=== PATIENT | male | born 1940 | race Caucasian/White ===

== ENCOUNTER 2016-10-15 10:34 | Outpatient (CLI) | payer MEDICARE, OTHER | END 2016-10-15 10:35 | disposition home or self-care (01) | DX: I48.91 Unspecified atrial fibrillation (principal); Z79.01 Long term (current) use of anticoagulants ==

== ENCOUNTER 2016-10-28 | Outpatient (CLI) | payer MEDICARE, OTHER | END 2016-10-28 11:58 | disposition short-term general hospital (02) | CPT/HCPCS: A0425; A0427 ==

== ENCOUNTER 2016-11-03 10:17 | Outpatient (CLI) | payer MEDICARE, OTHER | END 2016-11-03 10:18 | disposition home or self-care (01) | DX: I48.91 Unspecified atrial fibrillation (principal); Z79.01 Long term (current) use of anticoagulants ==

== ENCOUNTER 2016-11-17 08:00 | Outpatient (CLI) | payer MEDICARE, OTHER | END 2016-11-17 08:01 | disposition home or self-care (01) | DX: Z79.01 Long term (current) use of anticoagulants (principal); I48.91 Unspecified atrial fibrillation ==

== ENCOUNTER 2016-12-03 12:55 | Outpatient (CLI) | payer MEDICARE, OTHER | END 2016-12-03 12:56 | disposition home or self-care (01) | DX: I48.91 Unspecified atrial fibrillation (principal); Z79.01 Long term (current) use of anticoagulants ==

== ENCOUNTER 2016-12-08 20:50 | Observation (INO) | payer MEDICARE, OTHER ==
[2016-12-09] MEDS ORDERED: SODIUM CHLORIDE FLUSH 0.9% 10 ML SYRINGE IVP PRN (01:47)
[2016-12-09] MEDS ORDERED: ONDANSETRON 4 MG/2 ML VIAL IVP PRN (01:47)
[2016-12-09] MEDS ORDERED: ACETAMINOPHEN 325 MG TABLET PO PRN (01:47)
[2016-12-09] MEDS ORDERED: SODIUM CHLORIDE 0.9% 1,000 ML IV SCH (02:00)
[2016-12-09] MEDS: SODIUM CHLORIDE FLUSH 0.9% 10 ML SYRINGE IVP SCH ×3 (06:42→22:46)
[2016-12-09] MEDS: PANTOPRAZOLE 40 MG TABLET PO SCH (07:07)
[2016-12-09] MEDS: TAMSULOSIN 0.4 MG CAPSULE PO SCH (08:21)
[2016-12-09] MEDS: FINASTERIDE 5 MG TABLET PO SCH (08:21)
[2016-12-09] MEDS: ATORVASTATIN 10 MG TABLET PO SCH (08:21)
[2016-12-09] MEDS: POLYETHYLENE GLYCOL 3350 17 GM PACKET PO SCH (08:21)
[2016-12-09] MEDS ORDERED: NON FORMULARY MED (Omeprazole [Omeprazole] 20 MG) PO SCH (09:00)
[2016-12-09] MEDS: VITAMIN B COMPLEX 100 MG PO SCH (11:52)
[2016-12-09] MEDS ORDERED: WARFARIN 2.5 MG TABLET PO SCH (14:00)
[2016-12-10] MEDS: SODIUM CHLORIDE FLUSH 0.9% 10 ML SYRINGE IVP SCH (06:25)
[2016-12-10] MEDS: PANTOPRAZOLE 40 MG TABLET PO SCH (06:25)
[2016-12-10] MEDS ORDERED: MAGNESIUM HYDROXIDE 2,400 MG/30 ML UDC PO ONE (08:30)
[2016-12-10] MEDS ORDERED: SENNA 8.6 MG TABLET PO ONE (08:30)
[2016-12-10] MEDS ORDERED: DOCUSATE SODIUM 250 MG CAPSULE PO ONE (08:30)
[2016-12-10] MEDS ORDERED: NAPROXEN 250 MG TABLET PO SCH (09:00)
[2016-12-10] MEDS: FINASTERIDE 5 MG TABLET PO SCH (09:05)
[2016-12-10] MEDS: TAMSULOSIN 0.4 MG CAPSULE PO SCH (09:05)
[2016-12-10] MEDS: ATORVASTATIN 10 MG TABLET PO SCH (09:05)
[2016-12-10] MEDS: POLYETHYLENE GLYCOL 3350 17 GM PACKET PO SCH (09:07)
[2016-12-10] MEDS: VITAMIN B COMPLEX 100 MG PO SCH (09:07)
[2016-12-10] MEDS ORDERED: LATANOPROST 0.005% EACHEYE SCH (21:00)
[2016-12-10] MEDS ORDERED: OPTH EACHEYE SCH (21:00)
== END 2016-12-10 14:02 | disposition home or self-care (01) ==
DX: R53.1 Weakness (principal); N40.1 Benign prostatic hyperplasia with lower urinary tract symptoms; R35.0 Frequency of micturition; R39.15 Urgency of urination; G30.9 Alzheimer's disease, unspecified; F02.80 Dementia in other diseases classified elsewhere, unspecified severity, without behavioral disturbance, psychotic disturbance, mood disturbance, and anxiety; M17.11 Unilateral primary osteoarthritis, right knee; R26.2 Difficulty in walking, not elsewhere classified; I48.2 Chronic atrial fibrillation; Z79.01 Long term (current) use of anticoagulants; K21.9 Gastro-esophageal reflux disease without esophagitis; H40.9 Unspecified glaucoma; E78.5 Hyperlipidemia, unspecified; Z12.5 Encounter for screening for malignant neoplasm of prostate; Z79.899 Other long term (current) drug therapy
CPT/HCPCS: 36415; 51701; 70450; 73562; 80048; 81001; 83735; 84100; 84550; 85025; 85610; 85730; 87275; 87276; 97116; 97161; 99284; 99285; A9270; G0103; G0378; G8978; G8979; G8980

== ENCOUNTER 2016-12-23 13:22 | Outpatient (CLI) | payer MEDICARE, OTHER | END 2016-12-23 13:23 | disposition home or self-care (01) | DX: I48.91 Unspecified atrial fibrillation (principal); Z79.01 Long term (current) use of anticoagulants ==

== ENCOUNTER 2017-01-25 12:37 | Outpatient (CLI) | payer MEDICARE, OTHER | END 2017-01-25 12:38 | disposition home or self-care (01) | DX: Z79.01 Long term (current) use of anticoagulants (principal); I48.91 Unspecified atrial fibrillation ==

== ENCOUNTER 2017-02-08 11:18 | Outpatient (CLI) | payer MEDICARE, OTHER | END 2017-02-08 11:19 | disposition home or self-care (01) | DX: I48.91 Unspecified atrial fibrillation (principal); Z79.01 Long term (current) use of anticoagulants ==

== ENCOUNTER 2017-03-03 10:20 | Outpatient (CLI) | payer MEDICARE, OTHER | END 2017-03-03 10:21 | disposition home or self-care (01) | LOC: LAB.F 10:20 | PROVIDERS: ATTEND Internal Medicine | DX: I48.91 Unspecified atrial fibrillation (principal) | CPT/HCPCS: 85610 ==

== ENCOUNTER 2017-03-10 10:36 | Outpatient (CLI) | payer MEDICARE, OTHER | END 2017-03-10 10:37 | disposition home or self-care (01) | LOC: LAB.F 10:36 | PROVIDERS: ATTEND Internal Medicine | DX: Z79.01 Long term (current) use of anticoagulants (principal) | CPT/HCPCS: 85610 ==

== ENCOUNTER 2017-03-24 10:34 | Outpatient (CLI) | payer MEDICARE, OTHER | END 2017-03-24 10:35 | disposition home or self-care (01) | LOC: LAB.F 10:34 | PROVIDERS: ATTEND Internal Medicine | DX: Z79.01 Long term (current) use of anticoagulants (principal) | CPT/HCPCS: 85610 ==

== ENCOUNTER 2017-04-07 09:10 | Outpatient (CLI) | payer MEDICARE, OTHER | END 2017-04-07 09:11 | disposition home or self-care (01) | LOC: LAB.F 09:10 | PROVIDERS: ATTEND Internal Medicine | DX: Z79.01 Long term (current) use of anticoagulants (principal); I48.91 Unspecified atrial fibrillation | CPT/HCPCS: 85610 ==

== ENCOUNTER 2017-05-05 11:20 | Outpatient (CLI) | payer MEDICARE, OTHER | END 2017-05-05 11:21 | disposition home or self-care (01) | LOC: LAB.F 11:20 | PROVIDERS: ATTEND Internal Medicine | DX: Z79.01 Long term (current) use of anticoagulants (principal); I48.91 Unspecified atrial fibrillation | CPT/HCPCS: 85610 ==

== ENCOUNTER 2017-06-16 10:13 | Outpatient (CLI) | payer MEDICARE, OTHER | END 2017-06-16 10:14 | disposition home or self-care (01) | LOC: LAB.F 10:13 | PROVIDERS: ATTEND Internal Medicine | DX: Z79.01 Long term (current) use of anticoagulants (principal); I48.91 Unspecified atrial fibrillation | CPT/HCPCS: 85610 ==

== ENCOUNTER 2017-06-30 12:22 | Outpatient (CLI) | payer MEDICARE, OTHER | END 2017-06-30 12:23 | disposition critical access hospital (66) | LOC: EMS 12:22 | PROVIDERS: ATTEND Surgery | DX: R53.1 Weakness (principal); R41.82 Altered mental status, unspecified | CPT/HCPCS: A0425; A0427 ==

== ENCOUNTER 2017-06-30 12:23 | Emergency (ER) | payer MEDICARE, OTHER ==
[2017-06-30] MEDS ORDERED: SODIUM CHLORIDE 0.9% 1,000 ML IV ONE ×2 (12:30)
--- NOTE | 2017-06-30 12:33 | ED Physician Documentation ---
History of Present Illness - Stated complaint Stated Complaint: weakness - History obtained from History obtained from: Patient, EMS - History of Present Illness Timing: Today Pain level max: 0 Pain level now: 0 - Additonal information Additional information: Patient is a 77-year-old gentleman who presents to the emergency department after being found down in his lawn by a neighbor. Patient states he did not lose consciousness and was just feeling weak and sat down. The neighbor is unavailable for history and EMS could not get history whether he actually passed out or not. He initially was confused, but now appears awake and alert. Per EMS the patient's states the confusion is new today. Did not have any focal neurological deficits with EMS. EKG was atrial fibrillation and this is chronic for him. Concerned that he may have hit his head and he does take warfarin. Review of Systems Ten Systems: 10 systems reviewed and negative Constitutional: denies: Fever, Chills Eyes: denies: Decreased vision Ears: denies: Ear pain Nose: denies: Rhinorrhea / runny nose, Congestion Throat: denies: Sore throat Cardiac: denies: Chest pain / pressure Respiratory: denies: Cough GI: denies: Abdominal Pain, Nausea, Vomiting, Diarrhea : denies: Dysuria Skin: denies: Rash Musculoskeletal: denies: Neck pain, Back pain Neurologic: denies: Headache PD PAST MEDICAL HISTORY - Past Medical History Cardiovascular: High cholesterol, Atrial fibrillation Respiratory: None Neuro: Alzhiemer's Endocrine/Autoimmune: None GI: GERD : None HEENT: Glaucoma Psych: None Musculoskeletal: None Derm: None - Past Surgical History Past Surgical History: Yes Ortho: Other HEENT: Cataracts - Present Medications Home Medications: Ambulatory Orders Medication Instructions Recorded Confirmed Finasteride [Proscar] 5 mg PO DAILY 10/25/15 06/30/17 Warfarin Sodium [Jantoven] 2.5 mg PO DAILY 10/25/15 06/30/17 Sulfamethox/Trimeth 800/160 1 each PO BID #14 tablet 06/30/17 [Bactrim Ds 800/160] - Allergies Allergies/Adverse Reactions: Allergies Allergy/AdvReac Type Severity Reaction Status Date / Time ?betablockers Allergy Unknown Uncoded 12/08/16 21:05 - Social History Does the pt smoke?: No Smoking Status: Never smoker Does the pt drink ETOH?: Yes Does the pt have substance abuse?: No - Immunizations Immunizations are current?: Yes - POLST Patient has POLST: No PD ED PE NORMAL - Vitals Vital signs reviewed: Yes - General General: No acute distress, Well developed/nourished, Other (still confused to time, but oriented to person and place. 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, No motor deficit, No sensory deficit, Normal speech GCS Score: 14 - Psych Psych: Normal mood, Normal affect Results - Vitals Vitals: Oxygen O2 Source Room air - EKG (time done) 1245 Rate: Rate (enter#) (74) Rhythm: Atrial fibrillation [place]: Normal QRS: Normal Ischemia: Normal ST segments - Labs Labs: Microbiology 06/30/17 13:36 Urine Culture - Final Urine,Clean Catch Staphylococcus Epidermidis Laboratory Tests 06/30/17 06/30/17 06/30/17 13:36 13:56 13:56 WBC 12.9 H RBC 5.03 Hgb 15.6 Hct 46.0 MCV 91.5 MCH 31.1 H MCHC 34.0 RDW 14.4 Plt Count 315 MPV 8.2 Neut # 11.4 H Lymph # 0.8 L [place] # 0.7 Eos # 0.1 Baso # 0.0 Absolute Nucleated RBC 0.00 Nucleated RBCs 0.0 PT 27.8 H INR 2.5 H Sodium Potassium Chloride Carbon Dioxide Anion Gap BUN Creatinine Estimated GFR (MDRD) Glucose Calcium Total Bilirubin AST ALT Alkaline Phosphatase Troponin I Total Protein Albumin Globulin Albumin/Globulin Ratio Lipase Urine Color DARK YELLOW Urine Clarity HAZY Urine pH 6.5 Ur Specific [place] 1.020 Urine Protein NEGATIVE Urine Glucose (UA) NEGATIVE Urine Ketones NEGATIVE Urine Occult Blood NEGATIVE Urine Nitrite POSITIVE H Urine Bilirubin NEGATIVE Urine Urobilinogen 0.2 (NORMAL) Ur Leukocyte Esterase NEGATIVE Urine RBC 0-5 Urine WBC 0-3 Ur Squamous Epith Cells NONE SEEN Urine Bacteria Many H Urine Mucus Few Strands Ur Microscopic Review INDICATED Urine Culture Comments INDICATED 06/30/17 06/30/17 13:56 13:56 WBC RBC Hgb Hct MCV MCH MCHC RDW Plt Count MPV Neut # Lymph # Bureau # Eos # Baso # Absolute Nucleated RBC Nucleated RBCs PT INR Sodium 136 Potassium 4.2 Chloride 108 Carbon Dioxide 20 L Anion Gap 8.0 BUN 15 Creatinine 0.9 Estimated GFR (MDRD) 82 L Glucose 153 H Calcium 8.7 Total Bilirubin 0.8 AST 21 ALT 20 Alkaline Phosphatase 52 Troponin I < 0.04 Total Protein 6.3 L Albumin 3.8 Globulin 2.5 Albumin/Globulin Ratio 1.5 Lipase 27 Urine Color Urine Clarity Urine pH Ur Specific [place] Urine Protein Urine Glucose (UA) Urine Ketones Urine Occult Blood Urine Nitrite Urine Bilirubin Urine Urobilinogen Ur Leukocyte Esterase Urine RBC Urine WBC Ur Squamous Epith Cells Urine Bacteria Urine Mucus Ur Microscopic Review Urine Culture Comments - Rads (name of study) head CT Radiology: Prelim report reviewed, EMP read contemporaneously, See rad report ( No intracranial hemorrhage or other definite acute abnormality. Diffuse chronic microangiopathic white matter changes are without significant interval change. Pattern compatible with age-related volume loss. Ventricles are again somewhat disproportionately more prominent than the [place] and therefore normal pressure hydrocephalus is not excluded however, the pattern is without substantial change) PD MEDICAL DECISION MAKING - ED course Complexity details: reviewed old records, reviewed results, re-evaluated patient , considered differential, d/w patient, d/w family ED course: Patient is a 69-year-old male with Alzheimer's dementia who has mildly worsened mental status today acutely. Found to be weak and altered by his neighbor today. Did not appear to have had a syncopal event. Does not have any history of losing consciousness today. No seizure activity. Head CT does not reveal any acute abnormalities. Laboratory testing is without significant abnormalities other than a UTI. Given Rocephin IV and will place on oral antibiotics for home. He feels much better in the emergency department, mental status is at his baseline and he is ambulating well. Patient and family counseled regarding signs and symptoms for which I believe and urgent re- evaluation would be necessary. Patient with good understanding of and agreement to plan and is comfortable going home at this time This document was made in part using voice recognition software. While efforts are made to proofread this document, sound alike and grammatical errors may occur. Departure - Departure Disposition: 01 Home, Self Care Clinical Impression: UTI (urinary tract infection) Qualifiers: Urinary tract infection type: acute cystitis Hematuria presence: without hematuria Qualified Code(s): N30.00 - Acute cystitis without hematuria Dementia Qualifiers: Dementia type: Alzheimer's disease Alzheimer's disease onset: unspecified onset Dementia behavioral disturbance: without behavioral disturbance Qualified Code(s): G30.9 - Alzheimer's disease, unspecified Condition: Good Instructions: ED UTI Cystitis Male, ED Dementia Caregiver Support Follow-Up: Ahsan Neal MD [Primary Care Provider] - Within 1 week Prescriptions: Sulfamethox/Trimeth 800/160 [Bactrim Ds 800/160] 1 each PO BID #14 tablet Comments: The antibiotic may affect his INR, hold his next 2 doses of warfarin and then restart it. Take all antibiotics until gone. You should have your INR rechecked after 3-4 days on the antibiotics to make sure it is not too elevated. Return if he worsens. Discharge Date/Time: 06/30/17 15:15
--- NOTE | 2017-06-30 13:47 | CT Preliminary Report ---
Exam: CT Head W/O IMPRESSION: 1. No intracranial hemorrhage or other definite acute abnormality. 2. Diffuse chronic microangiopathic white matter changes are without significant interval change. 3. Pattern compatible with age-related volume loss. The ventricles again are somewhat disproportionat bert more prominent than the sulci and therefore normal pressure hydrocephalus is not excluded. Isabel r, the pattern is without substantial change. [facility] SITE ID: [id number]
[2017-06-30 13:49] LABS: BILIRUBIN,URINE NEGATIVE (NEGATIVE); PH,URINE 6.5 PH (5.0-7.5)
--- NOTE | 2017-06-30 13:50 | CT Report ---
EXAM: CT HEAD EXAM DATE: 06/30/2017 01:35 PM. CLINICAL HISTORY: Fall, head injury, pt on warfarin. COMPARISON: 12/09/2016. TECHNIQUE: Multiaxial CT images were obtained from the foramen magnum to the vertex. IV contrast: Non e. Reformats: Coronal. In accordance with CT protocol optimization, one or more of the following dose reduction techniques w ere utilized for this exam: automated exposure control, adjustment of mA and/or KV based on patient s ize, or use of iterative reconstructive technique. FINDINGS: Parenchyma: No intraparenchymal hemorrhage. No evidence of mass, midline shift, or CT findings of acu te infarction. Stern-white differentiation is distinct. Extraaxial Spaces: Normal for age. No subdural or epidural collections identified. Ventricles: The ventricles and cortical sulci are enlarged, consistent with age-related tissue loss. However, the ventricles remain disproportionately prominent relative to the sulci. Sinuses: Stable mild nodular soft tissue thickening within the right maxillary sinus. Otherwise, the paranasal sinuses, orbits, and mastoids show no significant abnormality. Bones: No evidence of fracture or calvarial defect. Other: Diffuse chronic microangiopathic white matter changes are evident. IMPRESSION: 1. No intracranial hemorrhage or other definite acute abnormality. 2. Diffuse chronic microangiopathic white matter changes are without significant interval change. 3. Pattern compatible with age-related volume loss. The ventricles again are somewhat disproportionat bert more prominent than the sulci and therefore normal pressure hydrocephalus is not excluded. Isabel diamond, the pattern is without substantial change. [facility] Referring Provider Line: [phone] SITE ID: [id number]
[2017-06-30 13:53] LABS: UA w/ MICROSCOPIC CHARGE YES
[2017-06-30] MEDS ORDERED: cefTRIAXone 1 GM VIAL IVP STA (14:11)
[2017-06-30 14:16] LABS: WBC,URINE 0-3 /HPF (0-3)
[2017-06-30 14:17] LABS: UR CULTURE IF IND INDICATED
[2017-06-30] MEDS ORDERED: cefTRIAXone 1 GM VIAL ONE (14:24)
[2017-06-30 14:27] LABS: BASOPHILS % (AUTO) 0.4 %; EOSINOPHILS # (AUTO) 0.1 10^3/uL (0.0-0.7); EOSINOPHILS % (AUTO) 0.5 %; HGB - HEMOGLOBIN 15.6 g/dL (14.0-18.0); LYMPHOCYTES # (AUTO) 0.8 10^3/uL (1.5-3.5); LYMPHOCYTES % (AUTO) 5.8 %; MEAN CORPUSCULAR HEMOGLOBIN 31.1 pg (27.0-31.0); MEAN CORPUSCULAR VOLUME 91.5 fL (80.0-94.0); MEAN PLATELET VOLUME 8.2 fL (7.4-11.4); MONOCYTES # (AUTO) 0.7 10^3/uL (0.0-1.0); NEUTROPHILS # (AUTO) 11.4 10^3/uL (1.5-6.6); NEUTROPHILS % (AUTO) 88.3 %; RED BLOOD COUNT 5.03 10^6/uL (4.70-6.10); RED CELL DISTRIBUTION WIDTH 14.4 % (12.0-15.0); UNCORRECTED WHITE BLOOD COUNT 12.9 x10^3/uL; WHITE BLOOD COUNT 12.9 x10^3/uL (4.8-10.8)
[2017-06-30 14:32] LABS: INR 2.5 (0.8-1.2); PT - PROTHROMBIN TIME 27.8 secs (9.9-12.6)
[2017-06-30 14:34] LABS: ALBUMIN/GLOBULIN RATIO 1.5 (1.0-2.2); BILIRUBIN,TOTAL 0.8 mg/dL (0.2-1.0); CALCIUM 8.7 mg/dL (8.5-10.3); CREATININE 0.9 mg/dL (0.6-1.2); POTASSIUM 4.2 mmol/L (3.5-5.0); TOTAL PROTEIN 6.3 g/dL (6.7-8.2)
[2017-06-30 14:43] VITALS: BP 113/71
== END 2017-06-30 15:15 | disposition home or self-care (01) ==
LOC: EDUNIT# → ED 12:23
DX: N30.00 Acute cystitis without hematuria (principal); I48.91 Unspecified atrial fibrillation; G30.9 Alzheimer's disease, unspecified; F02.80 Dementia in other diseases classified elsewhere, unspecified severity, without behavioral disturbance, psychotic disturbance, mood disturbance, and anxiety; E78.00 Pure hypercholesterolemia, unspecified; Z79.01 Long term (current) use of anticoagulants
CPT/HCPCS: 36415; 70450; 80053; 81001; 81003; 83690; 84484; 85025; 85610; 87077; 87086; 93005; 96374; 99284

== ENCOUNTER 2017-07-12 11:23 | Outpatient (CLI) | payer MEDICARE, OTHER | END 2017-07-12 11:24 | disposition home or self-care (01) | LOC: LAB.F 11:23 | PROVIDERS: ATTEND Internal Medicine | DX: Z79.01 Long term (current) use of anticoagulants (principal); I48.91 Unspecified atrial fibrillation | CPT/HCPCS: 85610 ==

== ENCOUNTER 2017-08-11 10:11 | Outpatient (CLI) | payer MEDICARE, OTHER | END 2017-08-11 10:12 | disposition home or self-care (01) | LOC: LAB.F 10:11 | PROVIDERS: ATTEND Internal Medicine | DX: Z79.01 Long term (current) use of anticoagulants (principal); I48.91 Unspecified atrial fibrillation | CPT/HCPCS: 85610 ==

== ENCOUNTER 2017-09-08 09:59 | Outpatient (CLI) | payer MEDICARE, OTHER | END 2017-09-08 10:00 | disposition home or self-care (01) | LOC: LAB.F 09:59 | PROVIDERS: ATTEND Internal Medicine | DX: Z79.01 Long term (current) use of anticoagulants (principal); I48.91 Unspecified atrial fibrillation | CPT/HCPCS: 85610 ==

== ENCOUNTER 2017-10-06 08:00 | Outpatient (CLI) | payer MEDICARE, OTHER | END 2017-10-06 08:01 | disposition home or self-care (01) | LOC: LAB.R 08:00 → LAB.F 08:01 | PROVIDERS: ATTEND Internal Medicine | DX: Z79.01 Long term (current) use of anticoagulants (principal); I48.91 Unspecified atrial fibrillation | CPT/HCPCS: 85610 ==

== ENCOUNTER 2017-10-20 10:56 | Outpatient (CLI) | payer MEDICARE, OTHER ==
[2017-10-20 17:53] LABS: BASOPHILS % (AUTO) 0.5 %; EOSINOPHILS # (AUTO) 0.2 10^3/uL (0.0-0.7); EOSINOPHILS % (AUTO) 2.5 %; HGB - HEMOGLOBIN 16.1 g/dL (14.0-18.0); LYMPHOCYTES # (AUTO) 1.3 10^3/uL (1.5-3.5); LYMPHOCYTES % (AUTO) 19.5 %; MEAN CORPUSCULAR HEMOGLOBIN 30.8 pg (27.0-31.0); MEAN CORPUSCULAR HGB CONC 32.9 g/dL (32.0-36.0); MEAN CORPUSCULAR VOLUME 93.8 fL (80.0-94.0); MONOCYTES # (AUTO) 0.6 10^3/uL (0.0-1.0); MONOCYTES % (AUTO) 8.8 %; NEUTROPHILS # (AUTO) 4.5 10^3/uL (1.5-6.6); NEUTROPHILS % (AUTO) 68.7 %; PLT - PLATELET COUNT 356 10^3/uL (130-450); RED BLOOD COUNT 5.21 10^6/uL (4.70-6.10); RED CELL DISTRIBUTION WIDTH 14.1 % (12.0-15.0); WHITE BLOOD COUNT 6.6 x10^3/uL (4.8-10.8)
[2017-10-20 18:01] LABS: ALBUMIN/GLOBULIN RATIO 1.3 (1.0-2.2); ALKALINE PHOSPHATASE 58 IU/L (42-121); ALT ALANINE AMINOTRANSFERASE 24 IU/L (10-60); AST ASPARTATE AMINOTRANSFERASE 22 IU/L (10-42); BILIRUBIN,TOTAL 0.9 mg/dL (0.2-1.0); BUN - BLOOD UREA NITROGEN 12 mg/dL (6-20); CARBON DIOXIDE - CO2 29 mmol/L (21-32); CHLORIDE 103 mmol/L (101-111); CHOL/HDL RATIO 6.3 (<5.0); CHOLESTEROL 277 mg/dL; GFR - MDRD 72 (>89); GLUCOSE 91 mg/dL (70-100); HDL CHOLESTEROL 44 mg/dL; LDL CHOLESTEROL,CALCULATED 200 mg/dL; LDL/HDL RATIO 4.5 (<3.6); SODIUM 136 mmol/L (135-145); VLDL CHOLESTEROL 33 mg/dL
== END 2017-10-20 10:57 | disposition home or self-care (01) ==
LOC: LAB.F 10:56
PROVIDERS: ATTEND Internal Medicine
DX: E78.5 Hyperlipidemia, unspecified (principal); C44.90 Unspecified malignant neoplasm of skin, unspecified; H40.059 Ocular hypertension, unspecified eye; K21.9 Gastro-esophageal reflux disease without esophagitis
CPT/HCPCS: 36415; 80053; 80061; 85025

== ENCOUNTER 2017-11-03 11:02 | Outpatient (CLI) | payer MEDICARE, OTHER | END 2017-11-03 11:03 | disposition home or self-care (01) | LOC: LAB.F 11:02 | PROVIDERS: ATTEND Internal Medicine | DX: Z79.01 Long term (current) use of anticoagulants (principal); I48.91 Unspecified atrial fibrillation | CPT/HCPCS: 85610 ==

== ENCOUNTER 2017-12-07 10:22 | Outpatient (CLI) | payer MEDICARE, OTHER | END 2017-12-07 10:23 | disposition home or self-care (01) | LOC: LAB.F 10:22 | PROVIDERS: ATTEND Internal Medicine | DX: I48.91 Unspecified atrial fibrillation (principal); Z79.01 Long term (current) use of anticoagulants | CPT/HCPCS: 85610 ==

== ENCOUNTER 2018-01-10 14:59 | Outpatient (CLI) | payer MEDICARE, OTHER | END 2018-01-10 15:00 | disposition home or self-care (01) | LOC: LAB.F 14:59 | PROVIDERS: ATTEND Internal Medicine | DX: Z79.01 Long term (current) use of anticoagulants (principal); I48.91 Unspecified atrial fibrillation | CPT/HCPCS: 85610 ==

== ENCOUNTER 2018-02-07 08:00 | Outpatient (CLI) | payer MEDICARE, OTHER | END 2018-02-07 08:01 | disposition home or self-care (01) | LOC: LAB.F 08:00 | PROVIDERS: ATTEND Internal Medicine | DX: Z79.01 Long term (current) use of anticoagulants (principal); I48.91 Unspecified atrial fibrillation | CPT/HCPCS: 85610 ==

== ENCOUNTER 2018-03-09 15:19 | Outpatient (CLI) | payer MEDICARE, OTHER | END 2018-03-09 15:20 | disposition home or self-care (01) | LOC: LAB.F 15:19 | PROVIDERS: ATTEND Internal Medicine | DX: I48.91 Unspecified atrial fibrillation (principal); Z79.01 Long term (current) use of anticoagulants | CPT/HCPCS: 85610 ==

== ENCOUNTER 2018-03-24 11:21 | Outpatient (CLI) | payer MEDICARE, OTHER | END 2018-03-24 11:22 | disposition home or self-care (01) | LOC: LAB.F 11:21 | PROVIDERS: ATTEND Internal Medicine | DX: I48.91 Unspecified atrial fibrillation (principal); Z79.01 Long term (current) use of anticoagulants | CPT/HCPCS: 85610 ==

== ENCOUNTER 2018-04-26 14:57 | Outpatient (CLI) | payer MEDICARE, OTHER | END 2018-04-26 14:58 | disposition home or self-care (01) | LOC: LAB.F 14:57 | PROVIDERS: ATTEND Internal Medicine | DX: I48.91 Unspecified atrial fibrillation (principal); Z79.01 Long term (current) use of anticoagulants | CPT/HCPCS: 85610 ==

== ENCOUNTER 2018-05-25 15:06 | Outpatient (CLI) | payer MEDICARE, OTHER | END 2018-05-25 15:07 | disposition home or self-care (01) | LOC: LAB.F 15:06 | PROVIDERS: ATTEND Internal Medicine | DX: Z79.01 Long term (current) use of anticoagulants (principal); I48.91 Unspecified atrial fibrillation | CPT/HCPCS: 85610 ==

== ENCOUNTER 2018-06-08 19:08 | Outpatient (CLI) | payer MEDICARE, OTHER | END 2018-06-08 19:09 | disposition critical access hospital (66) | LOC: EMS 19:08 | PROVIDERS: ATTEND Surgery | DX: R41.82 Altered mental status, unspecified (principal) | CPT/HCPCS: A0425; A0429 ==

== ENCOUNTER 2018-06-08 19:48 | Emergency (ER) | payer MEDICARE, OTHER ==
[2018-06-08] MEDS ORDERED: SODIUM CHLORIDE 0.9% 1,000 ML IV ONE (20:13)
[2018-06-08] MEDS ORDERED: ACETAMINOPHEN 500 MG TABLET PO STA (20:14)
--- NOTE | 2018-06-08 20:17 | ED Physician Documentation ---
PD HPI ALTERED MENTAL STATUS - Stated complaint Stated Complaint: AMS - Chief complaint Chief Complaint: Neuro - History obtained from History obtained from: Family - History of Present Illness Timing - onset: Today Timing - details: Gradual onset, Still present Quality / character: Confused, Disoriented Associated symptoms: Fever. No: Stiff neck, Dyspnea, Cough Contributing factors: Known dementia [place] status: Confused Similar symptoms before: Has not had sx before Recently seen: Not recently seen - Additional information Additional information: Patient is a 78 year old male with a history of a fib and alzhiemer's who is presenting to the emergency department for altered mental status. According to family when patient came home today from group, his called him down to come to dinner. at that time patient didn't respond to her, so she went to check on him and found that he felt warm. she checked his temperatures and he was febrile. they called the doctor who told them to come in for evaluation. Review of Systems Unable to obtain: Confused, Dementia PD PAST MEDICAL HISTORY - Past Medical History Cardiovascular: High cholesterol, Atrial fibrillation Respiratory: None Endocrine/Autoimmune: None GI: GERD : None HEENT: Glaucoma Psych: None Musculoskeletal: None Derm: None - Past Surgical History Past Surgical History: Yes Ortho: Other HEENT: Cataracts - Present Medications Home Medications: Ambulatory Orders Medication Instructions Recorded Confirmed Finasteride [Proscar] 5 mg PO DAILY 10/25/15 06/30/17 Warfarin Sodium [Jantoven] 2.5 mg PO DAILY 10/25/15 06/30/17 Latanoprost/Pf [Latanoprost 0.005% 1 drops EACHEYE DAILY 06/08/18 06/08/18 Eye Drop] - Allergies Allergies/Adverse Reactions: Allergies Allergy/AdvReac Type Severity Reaction Status Date / Time ?betablockers Allergy Unknown Uncoded 12/08/16 21:05 - Social History Does the pt smoke?: No Smoking Status: Never smoker Does the pt drink ETOH?: Yes Does the pt have substance abuse?: No - Immunizations Immunizations are current?: Yes - POLST Patient has POLST: No PD ED PE NORMAL - Vitals Vital signs reviewed: Yes - General General: Well developed/nourished - HEENT HEENT: Atraumatic, Moist mucous membranes - Neck Neck: Supple, no meningeal sign - Respiratory Respiratory: No respiratory distress, Clear bilaterally - Abdomen Abdomen: Soft, Non tender, Non distended - Derm Derm: Normal color, Warm and dry - Extremities Extremities: No deformity, No edema - Neuro Neuro: No motor deficit, Normal speech Eye Opening: Spontaneous Motor: Obeys Commands Verbal: Confused GCS Score: 14 PD ED PE EXPANDED - Cardiac Cardiac: Tachy, Irregularly irregular Results - Vitals Vitals: Vital Signs - 24 hr 06/08/18 06/08/18 06/08/18 19:50 20:30 20:52 Temperature 38 C H 37.1 C Heart Rate 91 85 84 Respiratory 16 18 19 Rate Blood Pressure 172/108 H 159/105 H 121/81 H O2 Saturation 9 L 95 94 Oxygen O2 Source Room air - Labs Labs: Laboratory Tests 06/08/18 06/08/18 06/08/18 20:20 20:20 20:20 WBC 11.3 H RBC 5.06 Hgb 15.8 Hct 45.8 MCV 90.5 MCH 31.2 H MCHC 34.5 RDW 13.7 Plt Count 347 MPV 7.9 Neut # (Auto) 9.5 H Lymph # (Auto) 0.7 L [place] # (Auto) 0.9 Eos # (Auto) 0.1 Baso # (Auto) 0.1 Absolute Nucleated RBC 0.00 Nucleated RBC % 0.0 Sodium 134 L Potassium 4.0 Chloride 103 Carbon Dioxide 23 Anion Gap 8.0 BUN 14 Creatinine 0.7 Estimated GFR (MDRD) 109 Glucose 112 H Lactic Acid Calcium 8.8 Total Bilirubin 1.0 AST 26 ALT 24 Alkaline Phosphatase 64 Troponin I < 0.04 Total Protein 6.7 Albumin 3.7 Globulin 3.0 Albumin/Globulin Ratio 1.2 Lipase 31 Urine Color Urine Clarity Urine pH Ur Specific [place] Urine Protein Urine Glucose (UA) Urine Ketones Urine Occult Blood Urine Nitrite Urine Bilirubin Urine Urobilinogen Ur Leukocyte Esterase Urine RBC Urine WBC Ur Epithelial Cells Ur Squamous Epith Cells Urine Bacteria Ur Microscopic Review Urine Culture Comments 06/08/18 06/08/18 20:20 21:10 WBC RBC Hgb Hct MCV MCH MCHC RDW Plt Count MPV Neut # (Auto) Lymph # (Auto) [place] # (Auto) Eos # (Auto) Baso # (Auto) Absolute Nucleated RBC Nucleated RBC % Sodium Potassium Chloride Carbon Dioxide Anion Gap BUN Creatinine Estimated GFR (MDRD) Glucose Lactic Acid 1.2 Calcium Total Bilirubin AST ALT Alkaline Phosphatase Troponin I Total Protein Albumin Globulin Albumin/Globulin Ratio Lipase Urine Color YELLOW Urine Clarity CLEAR Urine pH 6.0 Ur Specific [place] <=1.005 Urine Protein NEGATIVE Urine Glucose (UA) NEGATIVE Urine Ketones NEGATIVE Urine Occult Blood MODERATE H Urine Nitrite NEGATIVE Urine Bilirubin NEGATIVE Urine Urobilinogen 0.2 (NORMAL) Ur Leukocyte Esterase NEGATIVE Urine RBC 0-5 Urine WBC 0-3 Ur Epithelial Cells MOD Transitional H Ur Squamous Epith Cells NONE SEEN Urine Bacteria None Seen Ur Microscopic Review INDICATED Urine Culture Comments NOT INDICATED - Rads (name of study) ct head Radiology: Final report received (no acute findings, there is ischemic small vessel changes) PD MEDICAL DECISION MAKING - ED course Complexity details: reviewed old records, reviewed results, re-evaluated patient , considered differential, d/w patient, d/w family ED course: Patient was seen and examined at bedside. IV access was gained and labs were drawn. patient was treated with IV fluids and tylenol for the fever. cultures were drawn chest x-ray and ct heat were ordered. Patient's imaging was within normal limits. urine was collected and showed no acute abnormalities. Patient' s diagnostics were all within normal limits. Patient's fever resolved and patient was confused but seemed to be at his baseline. While meningitis was considered it was unlikely based on the patient's previous history and appearance. Patient had follow up tomorrow and was stable for discharge with outpatient follow up. - Sepsis Event Vital Signs: Vital Signs - 24 hr 06/08/18 06/08/18 06/08/18 19:50 20:30 20:52 Temperature 38 C H 37.1 C Heart Rate 91 85 84 Respiratory 16 18 19 Rate Blood Pressure 172/108 H 159/105 H 121/81 H O2 Saturation 9 L 95 94 Oxygen O2 Source Room air Departure - Departure Disposition: Home, Self Care Clinical Impression: Altered mental status, Dementia Condition: Good Instructions: ED Confusion Follow-Up: primary,care provider [Other] - Tomorrow Comments: Your diagnostics today were within normal limits. there were no acute abnormalities. Your blood cultures were drawn and you will be called if those were positive. You can control your fevers with ibuprofen or tylenol. There is likely a component of dementia and sundowning. You should follow up with your doctor tomorrow as planned. You can return to the emergency department at any tiem for new, worsening or uncontrollable symptoms.
[2018-06-08 20:24] LABS: BASOPHILS # (AUTO) 0.1 10^3/uL (0.0-0.1); BASOPHILS % (AUTO) 0.6 %; EOSINOPHILS # (AUTO) 0.1 10^3/uL (0.0-0.7); HGB - HEMOGLOBIN 15.8 g/dL (14.0-18.0); LYMPHOCYTES # (AUTO) 0.7 10^3/uL (1.5-3.5); LYMPHOCYTES % (AUTO) 6.4 %; MEAN CORPUSCULAR HEMOGLOBIN 31.2 pg (27.0-31.0); MEAN CORPUSCULAR HGB CONC 34.5 g/dL (32.0-36.0); MEAN CORPUSCULAR VOLUME 90.5 fL (80.0-94.0); MEAN PLATELET VOLUME 7.9 fL (7.4-11.4); MONOCYTES # (AUTO) 0.9 10^3/uL (0.0-1.0); MONOCYTES % (AUTO) 7.9 %; NEUTROPHILS # (AUTO) 9.5 10^3/uL (1.5-6.6); NEUTROPHILS % (AUTO) 84.1 %; PLT - PLATELET COUNT 347 10^3/uL (130-450); RED BLOOD COUNT 5.06 10^6/uL (4.70-6.10); RED CELL DISTRIBUTION WIDTH 13.7 % (12.0-15.0); WHITE BLOOD COUNT 11.3 x10^3/uL (4.8-10.8)
[2018-06-08 20:37] LABS: ALBUMIN 3.7 g/dL (3.2-5.5); ALBUMIN/GLOBULIN RATIO 1.2 (1.0-2.2); CALCIUM 8.8 mg/dL (8.5-10.3); CREATININE 0.7 mg/dL (0.6-1.2); TOTAL PROTEIN 6.7 g/dL (6.7-8.2)
--- NOTE | 2018-06-08 21:08 | CT Report ---
Reason: altered mental status Procedure Date: 06/08/2018 Accession Number: [id number] / [id number] Procedure: CT - Head W/O CPT Code: FULL RESULT: EXAM: CT HEAD EXAM DATE: 06/08/2018 08:47 PM. CLINICAL HISTORY: Altered mental status. COMPARISON: HEAD W/O 06/30/2017. TECHNIQUE: Multiaxial CT images were obtained from the foramen magnum to the vertex. Reformats: Sagittal and coronal. IV contrast: None. In accordance with CT protocol optimization, one or more of the following dose reduction techniques were utilized for this exam: automated exposure control, adjustment of mA and/or KV based on patient size, or use of iterative reconstructive technique. FINDINGS: Parenchyma: Diffuse periventricular and subcortical low density white matter changes. No evidence of acute infarction or hemorrhage. Extraaxial Spaces: Normal for age. No subdural or epidural collections identified. Ventricles: Normal in size and position. Sinuses and Orbits: Imaged paranasal sinuses, orbits, and mastoids show no significant abnormality. Bones: No evidence of fracture or calvarial defect. Other: None. IMPRESSION: 1. No acute intracranial abnormality. 2. Diffuse low density white matter changes compatible with chronic small vessel ischemic disease. [facility]
--- NOTE | 2018-06-08 21:10 | XRAY Report ---
Reason: fever Procedure Date: 06/08/2018 Accession Number: [id number] / [id number] Procedure: XR - Chest 1 View X-Ray CPT Code: 03338 FULL RESULT: EXAM: CHEST RADIOGRAPHY EXAM DATE: 06/08/2018 08:53 PM. CLINICAL HISTORY: Fever. COMPARISON: 10/25/2015. TECHNIQUE: 1 view. FINDINGS: Lungs/Pleura: No focal opacities evident. No pleural effusion. No pneumothorax. Mediastinum: Within exam limitations, the cardiomediastinal contour is normal. Other: None. IMPRESSION: Normal single view chest. [facility]
[2018-06-08 21:22] LABS: BILIRUBIN,URINE NEGATIVE (NEGATIVE); GLUCOSE, URINE (UA) NEGATIVE (NEGATIVE); KETONES,URINE (UA) NEGATIVE (NEGATIVE); LEUKOCYTE ESTERASE, URINE NEGATIVE (NEGATIVE); NITRITE,URINE NEGATIVE (NEGATIVE); OCCULT BLOOD,URINE MODERATE (NEGATIVE); PROTEIN,URINE NEGATIVE (NEGATIVE); UROBILINOGEN,URINE 0.2 (NORMAL) E.U./dL (NORMAL)
[2018-06-08 21:23] LABS: CLARITY,URINE CLEAR (CLEAR)
[2018-06-08 21:31] LABS: EPITHELIAL CELLS,UR MOD Transitional /HPF (<= Few); RBC,URINE 0-5 /HPF (0-5); SQUAMOUS EPITHELIAL CELL,UR NONE SEEN (<= Few)
[2018-06-08 21:32] LABS: BACTERIA,URINE None Seen /HPF (None Seen)
[2018-06-08 22:45] VITALS: BP 138/84
== END 2018-06-08 22:53 | disposition home or self-care (01) ==
LOC: ED 19:48
DX: R41.82 Altered mental status, unspecified (principal); G30.9 Alzheimer's disease, unspecified; F02.80 Dementia in other diseases classified elsewhere, unspecified severity, without behavioral disturbance, psychotic disturbance, mood disturbance, and anxiety; I48.91 Unspecified atrial fibrillation; Z79.01 Long term (current) use of anticoagulants
CPT/HCPCS: 36415; 70450; 71045; 80053; 81001; 83605; 83690; 84484; 85025; 87040; 96360; 99284; A9270; 81003; 87086

== ENCOUNTER 2018-06-27 08:00 | Outpatient (CLI) | payer MEDICARE, OTHER | END 2018-06-27 08:01 | disposition home or self-care (01) | LOC: LAB.S 08:00 | PROVIDERS: ATTEND Internal Medicine | DX: Z79.01 Long term (current) use of anticoagulants (principal); I48.91 Unspecified atrial fibrillation | CPT/HCPCS: 85610 ==

== ENCOUNTER 2018-07-11 15:16 | Outpatient (CLI) | payer MEDICARE, OTHER | END 2018-07-11 15:17 | disposition home or self-care (01) | LOC: LAB.F 15:16 | PROVIDERS: ATTEND Internal Medicine | DX: Z79.01 Long term (current) use of anticoagulants (principal); I48.91 Unspecified atrial fibrillation | CPT/HCPCS: 85610 ==